=== PATIENT | female | born 1990 | race African-American/Black ===

== ENCOUNTER 2018-08-06 | Inpatient (IN) ==
[2018-08-06] MEDS ORDERED: ONDANSETRON 4 MG/2 ML VIAL IV PRN ×2 (00:14→16:03)
[2018-08-06 01:06] LABS: Albumin 2.8 G/DL (3.4-5.0); Bilirubin,Total 0.5 MG/DL (0.2-1.0); Calcium 9.8 MG/DL (8.5-10.1); Osmolality,Calculated 274.5 MOS/KG (273-304); Potassium 3.6 MMOL/L (3.5-5.1); Total Protein 6.7 G/DL (6.4-8.3)
[2018-08-06 01:20] LABS: Basophils % 0.2 % (0.0-0.8); Eosinophils % 0.8 % (0.00-10.9); Hematocrit 31.9 VOL% (35.7-47.0); Hemoglobin 11.2 GM/DL (12.0-16.0); Immature Granulocytes Absolute 0.05 #; Lymphocytes # 1.8 10*3/uL (1.4-4.0); Lymphocytes % 35.7 % (21.3-54.2); Mean Corpuscular HGB Conc 35.1 GM/DL (32-36); Mean Corpuscular Hemoglobin 30 PG (27-34); Mean Corpuscular Volume 84.4 FL (87-102); Mean Platelet Volume 10.8 FL (9.6-12.0); Monocytes # 0.4 10*3/uL (0.11-0.8); Monocytes % 8.4 % (1.7-12.7); Neutrophils # 2.7 10*3/uL (1.4-7.4); Neutrophils % 53.9 % (38.7-73.9); Platelet Count 191 T/CUMM (130-400); Red Blood Count 3.78 MC/CUMM (3.8-5.5); Red Cell Distribution Width 14.1 % (9.3-17.3)
[2018-08-06] MEDS ORDERED: OXYTOCIN/LR 20 UNIT/1,000 ML BAG IV ONE ×2 (08:29→16:03)
[2018-08-06] MEDS: LACTATED RINGERS 1,000 ML IV SCH ×2 (08:35→09:54)
[2018-08-06] MEDS ORDERED: FAMOTIDINE 20 MG/2 ML VIAL IV ONE (08:38)
[2018-08-06] MEDS ORDERED: diphenhydrAMINE 50 MG/1 ML VIAL IV PRN ×2 (08:38)
[2018-08-06] MEDS ORDERED: LACTATED RINGERS 1,000 ML IV ONE (08:38)
[2018-08-06] MEDS ORDERED: CITRIC ACID/SODIUM CITRATE 30 ML UDCUP PO ONE (08:38)
[2018-08-06] MEDS ORDERED: NALOXONE 0.4 MG/ML VIAL IV PRN (08:38)
[2018-08-06] MEDS ORDERED: PROMETHAZINE 25 MG/1 ML VIAL IM ONE (08:38)
[2018-08-06] MEDS ORDERED: ePHEDrine 50 MG/ML AMP IV PRN (08:38)
[2018-08-06] MEDS ORDERED: BUTORPHANOL 2 MG/ML VIAL IV PRN (08:38)
[2018-08-06] MEDS ORDERED: hydrOXYzine HCL 25 MG/1 ML VIAL IM PRN (08:38)
[2018-08-06] MEDS ORDERED: ONDANSETRON 4 MG/2 ML VIAL IV ONE (08:38)
[2018-08-06] MEDS: OXYTOCIN/LR 20 UNIT/1,000 ML BAG IV SCH (08:53)
[2018-08-06] MEDS: fentaNYL 2 MCG/ROPIV 0.2% EPID 100 ML EPIDURAL SCH (09:45)
[2018-08-06 10:38] LABS: Apearance,Urine CLEAR (Clear); Bilirubin,Urine Negative (Negative); Blood, Urine Small mg/dL (Negative); Glucose,Urine (UA) Negative (Negative); Ketones,Urine Negative (Negative); Mucus,Urine Occasional /LPF (Occasional); Nitrite,Urine Negative (Negative); Protein,Urine Negative; RBC,Urine 13 /HPF (0-4); Squamous Epithelial Cell,Urine Occasional /HPF (0-10); Urine Color Yellow (Yellow); Urine Specific Gravity 1.013 (1.001-1.035); Urine Urobilinogen < 2.0 EU/DL (0.2-1.0); WBC,Urine 1 /HPF (0-6)
[2018-08-06] MEDS ORDERED: HYDROCORTISONE 2.5% RECTAL CREAM 30 GM TUBE TOP PRN (16:03)
[2018-08-06] MEDS ORDERED: oxyCODONE/ACETAMINOPHEN 5-325 MG TABLET PO PRN ×2 (16:03)
[2018-08-06] MEDS ORDERED: RHO(D) IMMUNE GLOBULIN 300 MCG SYRINGE IM ONE (16:03)
[2018-08-06] MEDS ORDERED: MEASLES/MUMPS/RUBELLA VACCINE 0.5 ML VIAL SUBCUT ONE (16:03)
[2018-08-06] MEDS ORDERED: BENZOCAINE 20%/MENTHOL 0.5% SPRAY 56 GM CAN TOP PRN (16:03)
[2018-08-06] MEDS ORDERED: LANOLIN 50% CREAM 0.3 OZ TUBE TOP PRN (16:03)
[2018-08-06] MEDS ORDERED: DIPH/TET/ACEL PERT BOOSTER VACCINE 0.5 ML VIAL IM ONE (16:03)
[2018-08-06] MEDS ORDERED: ACETAMINOPHEN 325 MG TABLET PO PRN (16:03)
[2018-08-06] MEDS ORDERED: BISACODYL 10 MG SUPP RECTAL PRN (16:03)
[2018-08-06] MEDS ORDERED: WITCH HAZEL PADS 100/JAR TOP PRN (16:03)
[2018-08-06] MEDS: DOCUSATE SODIUM 100 MG CAPSULE PO SCH (20:46)
[2018-08-06] MEDS: IBUPROFEN 800 MG TABLET PO PRN (20:46)
[2018-08-06] MEDS ORDERED: ACETAMINOPHEN/CODEINE 300-30 MG TABLET PO PRN ×2 (22:43)
[2018-08-07 06:31] LABS: Eosinophils % 0.5 % (0.00-10.9); Hematocrit 32.6 VOL% (35.7-47.0); Hemoglobin 11.3 GM/DL (12.0-16.0); Immature Granulocytes % 0.3 %; Immature Granulocytes Absolute 0.02 #; Lymphocytes # 1.6 10*3/uL (1.4-4.0); Mean Corpuscular HGB Conc 34.7 GM/DL (32-36); Mean Corpuscular Hemoglobin 29 PG (27-34); Mean Corpuscular Volume 84.7 FL (87-102); Mean Platelet Volume 10.4 FL (9.6-12.0); Monocytes # 0.5 10*3/uL (0.11-0.8); Monocytes % 8.1 % (1.7-12.7); Neutrophils # 4.3 10*3/uL (1.4-7.4); Neutrophils % 66.1 % (38.7-73.9); Platelet Count 168 T/CUMM (130-400); Red Blood Count 3.85 MC/CUMM (3.8-5.5); Red Cell Distribution Width 14.4 % (9.3-17.3); White Blood Count 6.4 T/CUMM (4-12)
[2018-08-07] MEDS: DOCUSATE SODIUM 100 MG CAPSULE PO SCH ×3 (09:23→22:19)
[2018-08-07] MEDS: IBUPROFEN 800 MG TABLET PO PRN (19:46)
[2018-08-07] MEDS: LACTATED RINGERS 1,000 ML IV SCH ×2 (19:51→19:52)
[2018-08-07] MEDS: fentaNYL 2 MCG/ROPIV 0.2% EPID 100 ML EPIDURAL SCH (19:52)
[2018-08-07] MEDS: OXYTOCIN/LR 20 UNIT/1,000 ML BAG IV SCH (19:53)
[2018-08-08 07:20] VITALS: BP 108/65
[2018-08-08] MEDS: DOCUSATE SODIUM 100 MG CAPSULE PO SCH (09:24)
== END 2018-08-08 10:00 | disposition home or self-care (01) | DRG 775 ==
LOC: N.LD → N.OB 20:13
PROVIDERS: ADMIT Obstetrics & Gynecology; ATTEND Obstetrics & Gynecology